=== PATIENT | female | born 1990 | race Caucasian/White ===

== ENCOUNTER 2020-05-09 12:38 | Emergency (ER) | payer BC, MEDICAID, SELFPAY ==
[2020-05-09 12:45] VITALS: BP 134/70; PULSE 82; RESP 14; TEMP 36.6; O2SAT 98
[2020-05-09 12:55] VITALS: BP 134/70; PULSE 82; RESP 14; TEMP 36.6; O2SAT 98
--- NOTE | 2020-05-09 12:58 | ED.EAR ---
HPI - Ear Problem General Chief complaint: Ear Stated complaint: ear pain Time Seen by Provider: 05/09/20 12:45 Source: patient Mode of arrival: ambulatory Limitations: no limitations History of Present Illness HPI Narrative: Kary Suarez is a 29 yo female with no PMH except impacted wisdom tooth who comes here for right ear pain for 2 days. States there is started hurting does not use Q-tips , states her right jaw is also hurting her. No nausea vomiting diarrhea Patient states that she has impacted right wisdom tooth. Unable to get it taken care of until Covid has cleared Related Data Allergies Allergy/AdvReac Type Severity Reaction Status Date / Time cefaclor Allergy Unknown Unknown Verified 05/09/20 12:54 Review of Systems Review of Systems: Narrative: CONSTITUTIONAL: Denies fever, chills, sweats. EYES: Denies visual changes, redness, discharge. ENT: Denies rhinorrhea, congestion, sore throat, right otalgia. With right jaw pain CARDIOVASCULAR: Denies chest pain, palpitations, edema. RESPIRATORY: Denies dyspnea, wheezing, cough GASTROINTESTINAL: Denies abdominal pain, nausea, vomiting, diarrhea. GENITOURINARY: Denies dysuria, hematuria, abnormal discharge SKIN: Denies rash or itching. NEUROLOGIC: Denies numbness, or focal weakness. PSYCHIATRIC: Denies anxiety or depression. PMFSH Past Medical History Medical History (Updated 05/09/20 @ 13:09 by Isabella Workman CNP) No acute medical problems Family History Family History Other No acute medical problems Social History Social History (Updated 05/09/20 @ 13:05 by Isabella Workman CNP) Smoking status: Current every day smoker Tobacco type: e-cigarettes/vaping Alcohol intake: current Comments At time of signature, I agree with nursing past medical, surgical, social and family history. There is no relevant family history pertinent to the presenting complaint. Exam Narrative: Exam Narrative: GENERAL: This is a well-nourished, well-developed patient, in mild distress. HEAD: normocephalic, atraumatic. EYES: Sclera clear/white. Vision is grossly intact. EARS: External ears normal, L auditory canal clear and R erythema and swelling without drainage, TMs normal without perforation. Hearing grossly intact. NOSE: External nose normal without nasal discharge, nares without redness, no rhinorrhea. THROAT: Mucous membranes moist, R lower swelling over rear molar; posterior pharynx clear NECK: Neck supple, non-tender CARDIOVASCULAR: Regular rate and rhythm without murmurs, gallops, or rubs. RESPIRATORY: Clear to auscultation. Breath sounds equal bilaterally. No wheezes, rales, or rhonchi. GASTROINTESTINAL: Abdomen soft, non-tender, SKIN: warm, intact with no suspicious lesions or rash, good texture and turgor. NEURO: awake, alert, and oriented to person, place and time. There were no obvious focal neurologic abnormalities. Steady gait EXTREMITIES: Normal range of motion. BACK: Nontender without deformity Course Course Emergency Course: Patient came in with right ear pain and right-sided jaw pain Started on eardrops for otitis externa; Tessalon for Dr. Demarcus cameron, Toradol for pain, encourage patient also use Flonase nasal spray Vital Signs Vital signs: Vital Signs Temperature 97.9 F 05/09/20 12:45 Pulse Rate 82 05/09/20 12:45 Respiratory Rate 14 05/09/20 12:45 Blood Pressure 134/70 05/09/20 12:45 Pulse Oximetry 98 05/09/20 12:45 Temperature 97.9 F 05/09/20 12:55 Pulse Rate 82 05/09/20 12:55 Respiratory Rate 14 05/09/20 12:55 Blood Pressure 134/70 05/09/20 12:55 Pulse Oximetry 98 05/09/20 12:55 Medical Decision Making Differential Diagnosis Differential Diagnosis: Tooth pain versus jaw pain versus pharyngitis Vital Signs Vital Signs: Vital Signs Temperature 97.9 F 05/09/20 12:45 Pulse Rate 82 05/09/20 12:45 Respiratory Rate 14 05/09/20
== END 2020-05-09 13:15 | disposition home or self-care (01) ==
PROVIDERS: Emergency Provider Nurse Practitioner
DX: R68.84 Jaw pain (principal); H60.391 Other infective otitis externa, right ear; F17.200 Nicotine dependence, unspecified, uncomplicated
CPT/HCPCS: 99213; G0463

== ENCOUNTER 2020-10-06 18:12 | Emergency (ER) | payer BC, MEDICAID, SELFPAY ==
[2020-10-06 18:18] VITALS: BP 122/75; PULSE 89; RESP 20; TEMP 36.4; O2SAT 100
--- NOTE | 2020-10-06 18:41 | ED.SKABFB ---
HPI - Skin/Abscess/Foreign Bdy General Chief complaint: Skin/Abscess/Foreign Body Stated complaint: left eye and rash Time Seen by Provider: 10/06/20 18:16 Source: patient and RN notes reviewed Mode of arrival: ambulatory Limitations: no limitations History of Present Illness HPI narrative: 30 year old female who presents to [facility] care with complaints of redness, irritation and burning sensation to her left eye with yellow drainage from left eye since yesterday with photophobia. Patient states that she had some irritation to her right eye last week when she got some oil absorbing stuff in her right eye, she rinsed her eye with saline and it has felt better but remains to have some redness, Patient also has red raised circular rash to upper chest, right mid abdomen, and left shoulder that is itchy which started today. Patient denies any new foods, soaps, laundry products, lotions, or new medications. MD complaint: rash Onset (ago): day(s) (1) Tetanus up to date: unsure Location: chest Severity: moderate Severity scale (1-10): 7 (to left eye described as burning and aching, denies visual changes or sharp pain to eyes) Quality: burning and aching Pain Consistency: constant Relieving factors: none Exacerbating factors: none Treatments prior to arrival: NSAID and other (Tylenol) Related Data Home Medications Medication Instructions Recorded Confirmed aripiprazole 2 mg PO DAILY 10/06/20 10/06/20 bupropion HCl 150 mg PO QAM 10/06/20 10/06/20 Allergies Allergy/AdvReac Type Severity Reaction Status Date / Time cefaclor Allergy Unknown Unknown Verified 10/06/20 18:37 Review of Systems Review of Systems: Narrative: CONSTITUTIONAL: Denies fever, chills, or sweats. EYES: Denies visual changes positive bilateral eye redness, with yellow tinged discharge. ENT: Denies rhinorrhea, congestion, sore throat, or otalgia. CARDIOVASCULAR: Denies chest pain, palpitations, or edema. RESPIRATORY: Denies cough or dyspnea. GASTROINTESTINAL: Denies abdominal pain, nausea, vomiting, or diarrhea. GENITOURINARY: Denies dysuria or hematuria. SKIN: Positive for red raised rash to chest mid abdomen and left shoulder rash or itching. MUSCULOSKELETAL: Denies back pain, joint pain, or myalgia. NEUROLOGIC: Denies headache, numbness, or weakness. PSYCHIATRIC: Positive for history of anxiety or depression. All systems reviewed & are unremarkable except as noted in HPI and below PMFSH Past Medical History Medical History (Updated 10/06/20 @ 19:20 by Chelsea Li NP) Anxiety and depression GERD (gastroesophageal reflux disease) Surgical History Surgical History (Updated 10/06/20 @ 18:54 by Chelsea Li NP) Hx of bilateral salpingectomy Family History Family History (Updated 10/06/20 @ 18:56 by Chelsea Li NP) Mother Diabetes mellitus Hypertension Cerebrovascular accident Grandparent Diabetes mellitus Hypertension Cerebrovascular accident Social History Social History (Updated 10/06/20 @ 19:19 by Chelsea Li NP) Smoking status: Current every day smoker Tobacco type: e-cigarettes/vaping Alcohol intake: current Substance use: never Living arrangements: with family Gender identity (if verbalized by the patient): Female Comments At time of signature, agree with nursing past medical, surgical, social and family history. There is no relevant family history pertinent to the presenting complaint Exam Narrative: Exam Narrative: GENERAL: Well-appearing, well-nourished, and in no acute distress. HEAD: Normocephalic, atraumatic. EYES: PERRLA and EOMI. bilateral conjunctiva redness with yellow tinged drainage from left eye with photophobia, visual acuity left eye 20/40 left and right eye 20/20 with glasses. Patient denies any changes in vision or any acute sharp pain to eyes. ENT: Nares clear, no rhinorrhea or epistaxis. Mucous membranes moist. NECK: Supple.no lymphadenopathy CHEST: Clear to auscultation. No
== END 2020-10-06 19:10 | disposition home or self-care (01) ==
PROVIDERS: Emergency Provider Registered Nurse
DX: H10.32 Unspecified acute conjunctivitis, left eye (principal); L25.9 Unspecified contact dermatitis, unspecified cause; F17.200 Nicotine dependence, unspecified, uncomplicated; K21.9 Gastro-esophageal reflux disease without esophagitis; F41.9 Anxiety disorder, unspecified; F32.9 Major depressive disorder, single episode, unspecified
CPT/HCPCS: 99213; G0463